=== PATIENT | male | born 2000 | race Caucasian/White ===

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

== ENCOUNTER 2019-03-12 02:23 | Emergency (ER) | payer OTHER ==
[~2019-03-12] VITALS: Ht 180.3 cm; Wt 88.1 kg
[~2019-03-12 02:23] MED LIST: ACET325T33 PO; FAMO-96 PO
[2019-03-12 02:27] VITALS: BP 136/70; PULSE 78; RESP 16; Ht 180.3 cm; Wt 88.1 kg
[2019-03-12] MEDS ORDERED: LIDOCAINE/MYLANTA 40 ML BTL PO ONE (03:30)
[2019-03-12] MEDS ORDERED: DOCU-144 PO (04:34)
[2019-03-12] MEDS ORDERED: POLY17PO6 PO (04:34)
[2019-03-12] MEDS ORDERED: MAG-19 PO (04:35)
--- NOTE | 2019-03-12 04:38 | ERD ---
ER Documentation Chief Complaint Chief Complaint abdominal pain with constipation x 1 week, denies n/v HPI 18-year-old male presents for abdominal pain x1 week. He has associated constipation which she notes is chronic. Patient denies any nausea vomiting. The pain is in the umbilical area, rated 7 out of 10, intermittent, lasting for about 5 seconds at a time. He denies any fevers or chills. Denies dysuria. Denies diarrhea. He is taking some medication at home for constipation but he does not know what it is. Denies any significant past medical history otherw ise. No other modifying factors noted, no other treatments tried at home. ROS All systems reviewed and are negative except as per history of present illness. Medications Home Meds Active Scripts Magaldrate/Simethicone* (Mylanta*) 355 Ml Susp, 30 ML PO QID PRN for GASTROINTESTINAL UPSET, #1 BOTTLE Prov:MANJULILLI 03/12/19 Polyethylene Glycol* (Miralax*) 17 Gm Powd.pack, 17 GM PO DAILY PRN for CONSTIPATION, #15 PACKET Prov:LILLI NUNES DO 03/12/19 Docusate Sodium* (Colace*) 100 Mg Capsule, 100 MG PO BID PRN for CONSTIPATION, #30 CAP Prov:MANJULILLI 03/12/19 Famotidine* (Pepcid*) 20 Mg Tablet, 20 MG PO BID for 4 Days, #30 TAB Prov:MARTINEZ NUNEZ PA-C 09/26/17 Acetaminophen* (Tylenol*) 325 Mg Tablet, 2 TAB PO Q6 PRN for PAIN AND OR ELEVATED TEMP, #20 TAB Prov:MARTINEZ NUNEZ PA-C 09/26/17 Allergies Allergies: Coded Allergies: No Known Allergy (Unverified , 02/08/13) PMhx/Soc History of Surgery: No Anesthesia Reaction: No Hx Neurological Disorder: No Hx Respiratory Disorders: No Hx Cardiac Disorders: No Hx Psychiatric Problems: No Hx Miscellaneous Medical Probl: No Hx Alcohol Use: No Hx Substance Use: No Hx Tobacco Use: No FmHx Family History: No coronary disease Physical Exam Vitals Vital Signs Date Temp Pulse Resp B/P (MAP) Pulse Ox O2 O2 Flow FiO2 Time Delivery Rate 03/12/19 97.8 78 16 136/70 97 02:27 (92) Physical Exam Const: No acute distress Resp: Clear to auscultation bilaterally Cardio: Regular rate and rhythm, no murmurs Abd: Soft, non distended. Normal bowel sounds, no tenderness palpation of the para umbilical area, no McBurney's point tenderness, no Dumont sign, no rebound or guarding noted Skin: No petechiae or rashes Back: No midline or flank tenderness Ext: No cyanosis, or edema Neur: Awake and alert Psych: Normal Mood and Affect Results 24 hrs Current Medications Medications Dose Sig/Nikky Start Time Status Last (Trade) Ordered Route PRN Stop Time Admin Dose Reason Admin 40 ml ONCE ONCE 03/12/19 DC 03/12/19 Miscellaneous PO 03:30 03:31 Medication 03/12/19 03:31 (Gi Cocktail (2)) Procedures/MDM Medical Decision Making: Differential diagnosis includes but not limited to acute gastritis, acute gastroenteritis, appendicitis, cholecystitis, pancreatitis, nephrolithiasis Patient appeared well on physical exam. Nontoxic appearing. ED course: Patient was given GI cocktail. Symptoms improved with treatment. Given benign abdominal examination, labs and imaging felt to be unnecessary. Patient likely has an acute gastritis. The symptoms are also complicated by chronic constipation. Prescription(s): Patient given prescription for supportive medications . Patient advised to follow up with PCP in 1-2 days. Patient advised to return to ED for new or worsening symptoms. Patient stable on discharge from the ED. Disclaimer: Inadvertent spelling and grammatical errors are likely due to EHR/dictation software use and do not reflect on the overall quality of patient care. Also, please note that the electronic time recorded on this note does not necessarily reflect the actual time of the patient encounter. Departure Diagnosis: Primary Impression: Abdominal pain Abdominal location: periumbilical Qualified Codes: R10.33 - Periumbilical pain Condition: Fair Patient Instructions: Abdominal Pain Referrals: [facility] YOU HAVE RECEIVED A MEDICAL SCREENING EXAM AND THE RESULTS INDICATE THAT YOU DO NOT HAVE A CONDITION THAT REQUIRES URGENT TREATMENT IN THE EMERGENCY DEPARTMENT. FURTHER EVALUATION AND TREATMENT OF YOUR CONDITION CAN WAIT UNTIL YOU ARE SEEN IN YOUR DOCTORS OFFICE WITHIN THE NEXT 1-2 DAYS. IT IS YOUR RESPONSIBILITY TO MAKE AN APPOINTMENT FOR FOLOW-UP CARE. IF YOU HAVE A PRIMARY DOCTOR --you should call your primary doctor and schedule an appointment IF YOU DO NOT HAVE A PRIMARY DOCTOR YOU CAN CALL OUR PHYSICIAN REFERRAL HOTLINE AT IF YOU CAN NOT AFFORD TO SEE A PHYSICIAN YOU CAN CHOSE FROM THE FOLLOWING [facility] [address] [facility] [address] [facility] [address] [facility] [address] [facility]. [facility] [address] [facility]. [facility]. [address] Additional Instructions: Call your primary care doctor TOMORROW for an appointment during the next 1-2 days.See the doctor sooner or return here if your condition worsens before your appointment time. LILLI NUNES DO March 12, 2019 04:38
== END 2019-03-12 05:07 | disposition home or self-care (01) ==
LOC: FTE 02:23
DX: R10.33 Periumbilical pain (principal)
CPT/HCPCS: Z7502; Z7610; 99282